=== PATIENT | female | born 1960 | race Two or more races ===

== ENCOUNTER 2019-07-18 09:36 | Emergency (ER) | payer OTHER ==
[~2019-07-18] VITALS: Ht 157.5 cm; Wt 72.1 kg
[2019-07-18 09:52] VITALS: BP 136/82
[2019-07-18] MEDS ORDERED: Acetaminophen 500mg (ES) tab ORAL ONE (10:30)
--- NOTE | 2019-07-18 10:39 | Emergency Room Report ---
History of Present Illness General Chief Complaint: Pain Source: Patient Present Illness HPI Patient Is a 58-year-old female who presents after increased right ankle and knee pain. Patient had onset of symptoms over 1 year ago. Patient is type II diabetic. She reports having persistent pain to the right leg. She denies any recent injuries. Patient states that she has been having worsening pain with ambulation. Pain is primarily in the knee. This was noted to be worse with movement. Patient normally walks approximately 1 hour/day. Allergies: Coded Allergies: DICLOFENAC (Verified Allergy, Unknown, 07/18/19) Patient History Past Medical History: see triage record Now: No Reviewed Nursing Documentation: PMH: Agreed; PSxH: Agreed Nursing Documentation-PMH Past Medical History: No History, Except For Hx Diabetes: Yes Review of Systems All Other Systems: negative except mentioned in HPI Physical Exam Vital Signs Date Time Temp Pulse Resp B/P (MAP) Pulse Ox O2 Delivery O2 Flow Rate FiO2 07/18/19 09:42 98.2 95 20 132/76 (94) 96 Room Air General Appearance: well appearing, no apparent distress, alert, GCS 15, non- toxic Head: normocephalic, atraumatic ENT: hearing grossly normal, normal voice Neck: full range of motion, supple Respiratory: no respiratory distress, speaking full sentences Cardiovascular #1: normal inspection Gastrointestinal: normal inspection Musculoskeletal: no calf tenderness, other - decreased ROM right knee and ankle , no erythema, tenderness - right knee, limited ROM Neurologic: normal inspection, alert, oriented x3, responsive, 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 Differential diagnosis include was not limited to arthritis, vascular insufficiency, DVT, septic joint among others.Patient's pain appears to be long-standing and appears to be arthritis related. Joint does not appear to be significantly warm or swollen. Patient was given prescription for medications for pain. X-ray imaging of the right knee interpreted by radiology showed degenerative changes without evident fracture or malalignment. Patient was advised to follow-up with her primary care physician for referral to physical therapy. Patient may require further orthopedic evaluation as well. Patient is advised to return if worse. Last Vital Signs Date Time Temp Pulse Resp B/P (MAP) Pulse Ox O2 Delivery O2 Flow Rate FiO2 07/18/19 09:52 98.2 86 20 136/82 98 Room Air Status: improved Disposition: HOME, SELF-CARE Condition: Stable Scripts Acetaminophen* (ACETAMINOPHEN EXTRA STRENGTH*) 500 Mg Tablet 500 MG ORAL Q8H PRN for Fever/Headache/Mild Pain, #30 TAB Prov: Leo Campos MD 07/18/19 Lidocaine (Lidocaine) 1 Each Adh..patch 5 % TP DAILY, #30 PATCH Prov: Leo Campos MD 07/18/19 Referrals: NON PHYSICIAN (PCP) Leo Campos MD Jul 18, 2019 10:39
--- NOTE | 2019-07-18 11:00 | Diagnostic Imaging Report ---
Indication: Right knee pain Technique: 3 views of the right knee Comparison: None Findings: There is a superior pole patellar traction osteophyte. No acute fractures. No dislocations. The joint spaces are preserved. Impression: Mild degenerative changes. No acute bony trauma
[2019-07-18] MEDS ORDERED: ACETAMINOPHEN500 M3 ORAL (11:56)
[2019-07-18] MEDS ORDERED: LIDOCAINE700 M1 TP (11:56)
[2019-07-18 12:00] VITALS: BP 127/78
== END 2019-07-18 12:00 | disposition home or self-care (01) ==
LOC: EMR 10:32
DX: M19.90 Unspecified osteoarthritis, unspecified site (principal); E11.9 Type 2 diabetes mellitus without complications; Z88.8 Allergy status to other drugs, medicaments and biological substances; M25.561 Pain in right knee
CPT/HCPCS: 99283